=== PATIENT | male | born 1970 | race Caucasian/White ===

== ENCOUNTER → 2020-11-13 16:26 | Outpatient (CLI) | payer OTHER, SELFPAY ==
--- NOTE | ~2020-11-13 | XR_ITS ---
XR shoulder LT min 2V DATE: 11/13/2020 17:25 INDICATION: Left shoulder pain TECHNIQUE: 4 views COMPARISON: None FINDINGS: No fracture or dislocation, periosteal reaction or bone destruction or abnormal soft tissue calcification. IMPRESSION: No significant abnormality Reviewed, dictated and finalized at location A. IMPRESSION: No significant abnormality
--- NOTE | ~2020-11-13 | XR_ITS ---
XR knee RT 2V DATE: 11/13/2020 17:31 INDICATION: Right knee pain TECHNIQUE: Standing AP and lateral views COMPARISON: None FINDINGS: There is slight periarticular spurring of the patella. Joint spaces are well preserved. No fracture or dislocation or joint effusion. No periosteal reaction or bone destruction. No radiopaque intra-articular loose body or chondrocalcinosis. IMPRESSION: Mild patellofemoral osteoarthritis Reviewed, dictated and finalized at location A.
== END ==
PROVIDERS: PCP Physician Assistant Medical; Visit Provider Physician Assistant Medical
DX: M25.561 Pain in right knee (principal); M25.512 Pain in left shoulder; M17.11 Unilateral primary osteoarthritis, right knee
CPT/HCPCS: 73030; 73560

== ENCOUNTER → 2020-11-17 17:21 | Outpatient (CLI) | payer OTHER, SELFPAY ==
--- NOTE | ~2020-11-17 | XR_ITS ---
XR finger 1st LT min 2V DATE: 11/17/2020 18:41 INDICATION: Pain TECHNIQUE: 3 views of first digit COMPARISON: 09/15/2013 left hand FINDINGS: There is a linear fracture at the outer margin of the base of the proximal phalanx of the l eft first digit consistent with recent minimally displaced fracture. No other fracture or dislocation. IMPRESSION: Fracture at the outer base of the proximal phalanx of the first digit Reviewed, dictated and finalized at location A. IMPRESSION: Fracture at the outer base of the proximal phalanx of the first dig it
== END ==
PROVIDERS: PCP Family Medicine; Visit Provider Nurse Practitioner Family
DX: S62.611A Displaced fracture of proximal phalanx of left index finger, initial encounter for closed fracture (principal); X58.XXXA Exposure to other specified factors, initial encounter
CPT/HCPCS: 73140

== ENCOUNTER 2022-01-21 11:57 | Day surgery (SDC) | payer OTHER, SELFPAY ==
[2022-01-05 14:45] VITALS: BMI 24.4
--- NOTE | 2022-01-21 07:23 | P.HP_ITS ---
History of Present Illness History of Present Illness Consent: Risks, benefits, and alternatives have been discussed and questions answered. Patient agrees to proceed with procedure. Chief complaint: Neoplasm Screeening Narrative: John Paul Franco is a 51 year old male referred for colon cancer screening. This is his 1st colonoscopy. Review of Systems Review of Systems: All systems reviewed & are unremarkable except as noted in HPI and below PMFSH Past Medical History Medical History BMI 24.0-24.9, adult Hypercholesteremia Surgical History Surgical History H/O wrist surgery Family History Family History Father Family history of malignant neoplasm Sibling Malignant neoplasm of prostate Mother No problems noted. 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 Spiritual care concerns: No Meds Home Medications and Allergies Home Medications Medication Instructions Recorded Confirmed Type levothyroxine 50 mcg tablet 50 mcg PO DAILY #30 tabs 11/02/21 01/05/22 Rx Allergies Allergy/AdvReac Type Severity Reaction Status Date / Time No Known Allergies Allergy Verified 01/21/22 12:16 Exam Const: General: alert Orientation/consciousness: patient oriented x3 Resp: Auscultation: clear to auscultation bilaterally Cardio: Rhythm: regular rhythm GI: GI Palp: Yes Soft to palpation and No Tenderness to palpation present (GI) Neuro: General: patient oriented x3 Assessment and Plan Assessment and plan (1) Screening for colon cancer: Code(s): Z12.11 - Encounter for screening for malignant neoplasm of colon Status: Acute Assessment and Plan: Colonoscopy with possible biopsy or polypectomy or cautery or injection of substances.
[2022-01-21 12:17] VITALS: BP 137/78; PULSE 59; RESP 15; TEMP 36.8; O2SAT 100
[2022-01-21 12:20] VITALS: BMI 24.0
[2022-01-21] MEDS: LACTATED RINGERS 1,000 ML 150 ML IV CONT (12:37)
--- NOTE | 2022-01-21 12:43 | P.PNAN_ITS ---
Anes - Initial Pre Proc Eval Procedure: Operation Date: 01/21/22 13:30 Proposed Procedures p Screening Colonoscopy - Xavier Harvey MD Date/Time: 01/21/22 12:43 Surgeon: Xavier Harvey MD Pre Op Diagnosis: Neoplasm Screeening Patient Data Age: 51 Gender: M Height: 1.75 m Weight: 74 kg Last Vital Signs Temp 36.8 C 01/21/22 12:17 Pulse 59 L 01/21/22 12:17 Resp 15 01/21/22 12:17 BP 137/78 01/21/22 12:17 Pulse Ox 100 01/21/22 12:17 O2 Del Method Room Air 01/21/22 12:17 Allergies Allergy/AdvReac Type Severity Reaction Status Date / Time No Known Allergies Allergy Verified 01/21/22 12:16 Home Medications Medication Instructions Recorded Confirmed Type levothyroxine 50 mcg tablet 50 mcg PO DAILY #30 tabs 11/02/21 01/05/22 Rx Patient hx anesthesia problems: none Family hx anesthesia problems: none Results Review: All pre-operative results and documents have been reviewed as part of the pre-operative evaluation. [facility] Past Medical History Medical History (Updated 12/03/20 @ 05:53 by Angelo Hayden NP) BMI 24.0-24.9, adult Hypercholesteremia Surgical History Surgical History (Updated 01/21/22 @ 12:43 by Ashok Colin MD) H/O wrist surgery Family History Family History Father Family history of malignant neoplasm Sibling Malignant neoplasm of prostate Mother No problems noted. 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 Informed Consent: The patient's anesthetic plan and its attendant risks and benefits were discussed with the patient/family/POA. Questions were solicited and answers provided to the satisfaction of the patient/family/POA.
[2022-01-21 12:50] VITALS: BP 113/68; PULSE 50; RESP 16; O2SAT 100
[2022-01-21 13:29] VITALS: BP 135/111; PULSE 60; RESP 16; O2SAT 97
[2022-01-21 13:40] VITALS: BP 108/68; PULSE 50; RESP 16; O2SAT 98
--- NOTE | 2022-01-21 13:55 | WPDANESPN ---
Anes - Prog Note Post-Op Date/Time: 01/21/22 13:55 Cardiovascular status: normal Respiratory status: normal Airway patency: baseline Mental status: baseline Post-Op hydration status: normal Vital Signs: Last Vital Signs Temp 36.8 C 01/21/22 12:17 Pulse 50 L 01/21/22 13:40 Resp 16 01/21/22 13:40 BP 108/68 01/21/22 13:40 Pulse Ox 98 01/21/22 13:40 O2 Del Method Room Air 01/21/22 13:40 Pain Score (VAS): 0/10 I/O: Intake & Output 01/20/22 01/21/22 01/21/22 23:59 07:59 15:59 Intake Total 450 Balance 450 Patient Feedback: Patient satisfied with anesthetic care.
--- NOTE | 2022-01-21 13:57 | SUR.PHASEII ---
PT AWAKE AND ALERT. DRINKING WATER. DENIES PAIN. GETTING DRESSED. WAITING FOR RIDE HOME
== END 2022-01-21 14:06 | disposition home or self-care (01) ==
PROVIDERS: PCP Family Medicine; Visit Provider Internal Medicine Gastroenterology
PROC: 0DJD8ZZ Inspection of Lower Intestinal Tract, Via Natural or Artificial Opening Endoscopic (ICD-10-PCS; CPT 45378; principal; 2022-01-21 13:30)
DX: Z12.11 Encounter for screening for malignant neoplasm of colon (principal)
CPT/HCPCS: 45385

== ENCOUNTER 2022-01-21 13:00 | Outpatient (NON) | payer OTHER, SELFPAY | END 2022-01-21 13:01 | disposition home or self-care (01) | LOC: ANHLAB 01-22 09:14 | PROVIDERS: PCP Family Medicine; Visit Provider Internal Medicine Gastroenterology | DX: K63.5 Polyp of colon (principal); D36.9 Benign neoplasm, unspecified site | CPT/HCPCS: 88305 ==

== ENCOUNTER 2022-04-26 08:05 | Outpatient (CLI) | payer OTHER, SELFPAY ==
--- NOTE | 2022-05-10 18:11 | WPDHOMESLEEP ---
Sleep Study - Home Unattended Date of Study: 04/26/22 Ordering Provider: Swapnil Swann MD Interpreting Provider: Desiree Lemus, DO Home Sleep Study Type: Watch PAT Height: 1.75 m Weight: 74.843 kg Body Mass Index: 24.3 Neck Circumference (inches): 14.5 [place]: 17 Reason for Sleep Study Snoring, daytime hypersomnia Sleep History The patient is a 51-year-old with hypothyroidism that had a sleep study ordered by his primary care physician for evaluation sleep apnea. 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 He rarely awakens from sleep short of breath. He denies awakening at night with heartburn, belching or cough. He constantly snores loud enough that others complain. He rarely has trouble sleeping when he has a cold. He denies waking up gasping for air throughout the night. He denies having breathing problems at night observed by himself or others. He rarely sweats excessively at night. He denies having heart palpitations or irregular heartbeats during the night. He occasionally falls asleep during the day but never while driving. He denies sleep paralysis, cataplexy hypnagogic / hypnopompic hallucinations. He rarely has trouble at school or work due to sleepiness. He denies feeling afraid of going to sleep. He rarely has nightmares. He occasionally remembers his dreams. He occasionally has thoughts racing through his mind. He denies feeling sad or depressed. He occasionally has anxiety. He denies having muscular tension. He denies noticing parts of his body jerk. He rarely kicks during the night. He denies having crawling and aching feelings in his legs and denies having leg pain during the night. He denies grinding his teeth during sleep and denies awakening with morning jaw pain. He is occasionally bothered by pain during the day and occasionally awakened by pain during the night. He frequently wakes up feeling stiff in the morning. He occasionally wakes up with sore or achy muscles. He rarely wakes up with pain in the neck, spine or other joints. He goes to bed at 8:00 p.m. on weekdays and at 10:00 p.m. on the weekends. It takes him 15 minutes to fall asleep. He wakes up 4 times throughout the night to each shift position. He is able to fall back asleep within 10 minutes. He wakes up at 4:30 a.m. on weekdays and 6:00 a.m. on the weekends. He typically gets 7 hours of sleep per night. He does not stay in bed after waking up in the morning. He currently lives with his and 2 children. He does not consume any caffeinated beverages within 2 hours of bedtime. He does not engage in physical exercise before bedtime. He will watch television before falling asleep. He denies taking naps in the afternoon or the evening. He drinks 1 cup of caffeinated beverage per day. He drinks 3-6 alcoholic beverages per weekend. He quit smoking cigarettes 15 years ago. He denies recreational drug use. [facility] Past Medical History Medical History BMI 24.0-24.9, adult Hypercholesteremia Surgical History Surgical History H/O wrist surgery Family History Family History Father Family history of malignant neoplasm Sibling Malignant neoplasm of prostate Mother No problems noted. 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
[2022-05-10 18:25] VITALS: BMI 24.3
== END 2022-04-27 10:04 | disposition home or self-care (01) ==
LOC: ANHCSM 08:06
PROVIDERS: PCP Family Medicine; Visit Provider Family Medicine
DX: G47.30 Sleep apnea, unspecified (principal); G47.33 Obstructive sleep apnea (adult) (pediatric)
CPT/HCPCS: 95800

== ENCOUNTER 2023-07-02 08:48 | Outpatient (CLI) | payer OTHER, SELFPAY ==
--- NOTE | ~2023-07-02 | XR_ITS ---
XR chest 2V DATE: 07/02/2023 08:56 INDICATION: Shortness of breath TECHNIQUE: 2 views COMPARISON: None FINDINGS: Moderate bilateral hyperinflation. No pulmonary infiltrate or consolidation, pleural effusi on or pulmonary vascular congestion or pneumothorax is detected. Normal heart size. No hilar or mediastinal enlargement. Minimal dextroscoliosis and minimal degenerative spurring of the thoracic spine. IMPRESSION: Moderate hyperinflation; no active cardiopulmonary disease Reviewed, dictated and finalized at location A.
== END 2023-07-02 08:49 ==
LOC: MICIMG 08:50
PROVIDERS: PCP Family Medicine; Visit Provider Nurse Practitioner Adult Health
DX: R91.8 Other nonspecific abnormal finding of lung field (principal)
CPT/HCPCS: 71046

== ENCOUNTER 2023-08-01 14:54 | Outpatient (CLI) | payer OTHER, SELFPAY ==
--- NOTE | 2023-08-02 13:16 | WPDPFTINT ---
PFT Procedure Performed PFT Procedure Performed Plethysmography (Lung Vol) Diffusing Cap (DLCO) Flow Vol Loop Spirometry w/o Bronchodil PFT Interpretation Lung volumes were measured with the body plethysmography method. Lung volumes are unremarkable. Spirometry showed normal expiratory flow rates and a normal FEV1 to FVC ratio of 79%. No post bronchodilator study was conducted. Lung diffusion capacity within the normal range at 90 % predicted. The flow-volume loop is unremarkable. Impression: Spirometry, lung volumes, and lung diffusion capacity all within the normal range.
== END 2023-08-01 14:55 | disposition home or self-care (01) ==
PROVIDERS: PCP Family Medicine; Visit Provider Nurse Practitioner Adult Health
DX: R06.02 Shortness of breath (principal)
CPT/HCPCS: 94375; 94726; 94729

== ENCOUNTER 2025-02-10 14:41 | Emergency (ER) | payer OTHER, SELFPAY ==
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
[2025-02-10 14:49] VITALS: BP 138/70; PULSE 52; RESP 18; TEMP 36.5; O2SAT 99
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
== END 2025-02-10 15:27 | disposition home or self-care (01) ==
PROVIDERS: Emergency Provider Nurse Practitioner Family; PCP Family Medicine
DX: M25.411 Effusion, right shoulder (principal); Z87.891 Personal history of nicotine dependence; E78.00 Pure hypercholesterolemia, unspecified
CPT/HCPCS: 73030; 99213; G0463